=== PATIENT | male | born 1955 | race Caucasian/White ===

== ENCOUNTER 2021-03-11 08:04 | Outpatient (CLI) | payer MEDICARE, OTHER, BC | END 2021-03-11 08:05 | disposition home or self-care (01) | LOC: CSHWCC 08:04 | PROVIDERS: ATTEND Nurse Practitioner Family | DX: K94.09 Other complications of colostomy (principal); E78.2 Mixed hyperlipidemia; F32.9 Major depressive disorder, single episode, unspecified; H90.3 Sensorineural hearing loss, bilateral; I10 Essential (primary) hypertension; I71.4 Abdominal aortic aneurysm, without rupture; K55.069 Acute infarction of intestine, part and extent unspecified; L25.8 Unspecified contact dermatitis due to other agents | CPT/HCPCS: 17250; 97139; G0463; 99203 ==

== ENCOUNTER 2021-03-18 09:07 | Outpatient (CLI) | payer MEDICARE, OTHER, BC | END 2021-03-18 09:08 | disposition home or self-care (01) | LOC: CSHWCC 09:07 | PROVIDERS: ATTEND Nurse Practitioner Family | DX: K94.09 Other complications of colostomy (principal); K55.069 Acute infarction of intestine, part and extent unspecified; E78.2 Mixed hyperlipidemia; F32.9 Major depressive disorder, single episode, unspecified; H90.3 Sensorineural hearing loss, bilateral; I10 Essential (primary) hypertension; I71.4 Abdominal aortic aneurysm, without rupture; L25.8 Unspecified contact dermatitis due to other agents; K63.89 Other specified diseases of intestine; K57.90 Diverticulosis of intestine, part unspecified, without perforation or abscess without bleeding | CPT/HCPCS: 97139; G0463; 74280; 99212 ==

== ENCOUNTER 2023-04-06 10:42 | Outpatient (CLI) | payer MEDICARE, BC | END 2023-04-06 10:43 | disposition home or self-care (01) | LOC: CSHCT 10:42 | PROVIDERS: ATTEND Family Medicine | DX: Z12.2 Encounter for screening for malignant neoplasm of respiratory organs (principal); Z87.891 Personal history of nicotine dependence; R91.1 Solitary pulmonary nodule | CPT/HCPCS: 71271 ==

== ENCOUNTER 2025-06-26 09:58 | Outpatient (CLI) | payer MEDICARE | END 2025-06-26 09:59 | disposition home or self-care (01) | LOC: CSHCT 09:58 | PROVIDERS: ATTEND Student in an Organized Health Care Education/Training Program | DX: Z12.2 Encounter for screening for malignant neoplasm of respiratory organs (principal); Z87.891 Personal history of nicotine dependence; R91.8 Other nonspecific abnormal finding of lung field | CPT/HCPCS: 71271 ==

== ENCOUNTER 2025-07-19 21:07 | Emergency (ER) | payer MEDICARE ==
[2025-07-19 22:22] LABS: #Basophils 0.11 10x3/uL (0.0-0.2); #Eosinophils 0.49 10x3/uL (0.0-0.5); #Monocytes 1.15 10x3/uL (0.0-1.1); #Neutrophils 9.56 10x3/uL (1.5-8.4); %Basophils 0.8 % (0.0-2.0); %Eosinophils 3.5 % (0.0-6.0); %Lymphocytes 18.5 % (18.0-47.0); %Monocytes 8.2 % (0.0-10.0); %Neutrophils 68.4 % (40.0-75.0); Hematocrit 42.6 % (38.8-50.0); Hemoglobin 14.5 g/dL (13.5-17.5); Mean Corpuscular Hemoglobin 31.0 pg (27.0-33.0); Mean Corpuscular Volume 91.0 fL (81.2-95.1); Platelet Count 269 10x3/uL (150-450); Red Blood Cell (RBC) Count 4.68 10x6/uL (4.32-5.72); White Blood Cell (WBC) Count 13.97 10x3/uL (3.5-10.5)
[2025-07-19 22:27] LABS: ALT (SGPT) 17 U/L (Less than 45); AST (SGOT) 28 U/L (11-34); Albumin 3.8 g/dL (3.1-4.5); Alkaline Phosphatase 65 U/L (40-110); Anion Gap 18 mmol/L (10-20); BUN (Urea Nitrogen) 33 mg/dL (8.4-25.7); Bilirubin, Total 0.3 mg/dL (0.3-1.2); Calc. Creatinine Clearance 0 mL/min (70-130); Calcium 9.8 mg/dL (7.8-10.44); Carbon Dioxide 20 mmol/L (23-31); Chloride 101 mmol/L (98-107); Globulin 3.5 g/dL (2.4-3.5); Glucose 130 mg/dL (83-110); Potassium 4.6 mmol/L (3.5-5.1); Sodium 134 mmol/L (136-145)
[2025-07-19 22:33] LABS: Troponin I 0.012 ng/mL (< 0.028)
== END 2025-07-20 01:20 | disposition home or self-care (01) ==
LOC: CSHERS 21:07
DX: R55 Syncope and collapse (principal); I12.9 Hypertensive chronic kidney disease with stage 1 through stage 4 chronic kidney disease, or unspecified chronic kidney disease; N18.9 Chronic kidney disease, unspecified; E87.1 Hypo-osmolality and hyponatremia; D72.829 Elevated white blood cell count, unspecified; E78.5 Hyperlipidemia, unspecified; Z79.899 Other long term (current) drug therapy
CPT/HCPCS: 80053; 84484; 85025; 93005; 99284